=== PATIENT | male | born 1970 | race Caucasian/White ===

== ENCOUNTER → 2018-05-07 | Day surgery (SDC) | payer OTHER ==
[~2018-05-07] VITALS: Ht 175.3 cm; Wt 102.5 kg
[~2018-05-07] MED LIST: BUPIVAC MPF-EPI 0.5%-1:200000 30 ML VIAL. ONE; CALC625T PO; DEXAMETHASONE SOD PHOS 20 MG/5 ML VIAL. ONE; HYDROmorphone 2 MG/ML VIAL IV PRN; IV RINGERS,LACTATED 1000ML 1,000 ML IV ONE; IV RINGERS,LACTATED 1000ML 1,000 ML IV SCH; LIDOCAINE 1% PF 2 ML VIAL. ID PRN; MIDAZOLAM HCL/PF 2 MG/2 ML VIAL. ONE; MORPHINE SULFATE 2 MG/ML VIAL. IV PRN; ONDANSETRON PF 4 MG/2 ML VIAL. IV PRN; ONDANSETRON PF 4 MG/2 ML VIAL. ONE; PROCHLORPERAZINE 10 MG/2 ML VIAL. IV PRN; PROPOFOL 20 ML IV ONE; ePHEDrine PF IN SALINE 50 MG/5 ML DISP.SYRIN IV ONE; fentaNYL PF VIAL 100 MCG/2 ML VIAL IV PRN; fentaNYL PF VIAL 100 MCG/2 ML VIAL ONE
--- NOTE | 2018-05-07 08:03 | PDOC1 ---
History and Physical Date of Admission Date of Admission DATE: 05/07/18 TIME: 08:00 Identification/Chief Complaint Chief Complaint left inguinal hernia Source Source: Chart review, Patient History of Present Illness History of Present Illness Tom is a 47 yo male inmate with a year history of left inguinal fullness and pain brought for repair of his hernia Past Medical History Cardiovascular: No pertinent hx Pulmonary: No pertinent hx Renal/: No pertinent hx Past Surgical History Past Surgical History: Other (left hand) Social History Smoke: No ALCOHOL: none Drugs: None Current Medications Current Medications Current Medications Cefazolin Sodium/ Dextrose 50 ml @ 100 mls/hr 1X PREOP PRN IV PRIOR TO PROCEDURE; Start 05/07/18 at 06:00; Stop 05/07/18 at 18:00 Ringer's Solution 1,000 ml @ 75 mls/hr 1X ONCE IV Last administered on at 06:36; Start 05/07/18 at 06:45; Stop 05/07/18 at 20:04 Ondansetron HCl (Zofran) 4 mg PRN Q6HRS PRN IV NAUSEA/VOMITING; Start 05/07/18 at 06:45; Stop 05/08/18 at 06:44 Fentanyl Citrate (Fentanyl 2ml Vial) 25 mcg PRN Q5MIN PRN IV MILD PAIN; Start 05/07/18 at 06:45; Stop 05/08/18 at 06:44 Fentanyl Citrate (Fentanyl 2ml Vial) 50 mcg PRN Q5MIN PRN IV MODERATE TO SEVERE PAIN; Start 05/07/18 at 06:45; Stop 05/08/18 at 06:44 Morphine Sulfate (Morphine Sulfate) 1 mg PRN Q10MIN PRN IV SEVERE PAIN; Start 05/07/18 at 06:45; Stop 05/08/18 at 06:44 Ringer's Solution 1,000 ml @ 30 mls/hr Q24H IV ; Start 05/07/18 at 06:45; Stop 05/07/18 at 06:50; Status DC Lidocaine HCl (Xylocaine-Mpf 1% 2ml Vial) 2 ml 1X PRN PRN ID IV START; Start 05/07/18 at 06:45; Stop 05/08/18 at 06:44 Hydromorphone HCl (Dilaudid) 0.5 mg PRN Q10MIN PRN IV SEV PAIN, Second choice; Start 05/07/18 at 06:45; Stop 05/08/18 at 06:44 Prochlorperazine Edisylate (Compazine) 5 mg PACU PRN PRN IV NAUSEA, MRX1; Start 05/07/18 at 06:45; Stop 05/08/18 at 06:44 Bupivacaine HCl/ Epinephrine Bitart (Sensorcain-Mpf Epi 0.5%-1:[id number]) 30 ml STK -MED ONCE .ROUTE ; Start 05/07/18 at 06:45; Stop 05/07/18 at 06:46; Status DC Propofol 20 ml @ As Directed STK-MED ONCE IV ; Start 05/07/18 at 07:47; Stop at 07:48; Status DC Dexamethasone Sodium Phosphate (Decadron) 20 mg STK-MED ONCE .ROUTE ; Start 05/07/18 at 07:47; Stop 05/07/18 at 07:48; Status DC Ondansetron HCl (Zofran) 4 mg STK-MED ONCE .ROUTE ; Start 05/07/18 at 07:47; Stop 05/07/18 at 07:48; Status DC Midazolam HCl (Versed) 2 mg STK-MED ONCE .ROUTE ; Start 05/07/18 at 07:47; Stop 05/07/18 at 07:48; Status DC Fentanyl Citrate (Fentanyl 2ml Vial) 100 mcg STK-MED ONCE .ROUTE ; Start at 07:48; Stop 05/07/18 at 07:49; Status DC Active Scripts Active Reported Fibercon (Calcium Polycarbophil) 625 Mg Tablet 625 Mg PO HS PRN Allergies Allergies: Coded Allergies: No Known Drug Allergies (Unverified , 05/07/18) ROS Review of System negative with exception of present complaints Physical Exam General: Alert, Oriented X3, No acute distress HEENT: Atraumatic Lungs: Normal air movement Heart: RRR Abdomen: Soft Male Genitals Exam: other (left inguinal fullness extending into the left hemiscrotum) Skin: No rashes Vitals Vitals Vital Signs Date Time Temp Pulse Resp B/P (MAP) Pulse Ox O2 Delivery O2 Flow Rate FiO2 05/07/18 06:23 98.0 59 18 156/76 96 Room Air 98.0 VTE Prophylaxis Ordered VTE Prophylaxis Devices: Yes VTE Pharmacological Prophylaxi: No Assessment/Plan Assessment/Plan left inguinal hernia repair explained risks of bleeding, infection, recurrence, chronic pain he will proceed BELLE ISABEL MD May 07, 2018 08:03
--- NOTE | 2018-05-07 09:18 | PDOC ---
BRIEF OPERATIVE NOTE Date: May 07, 2018 Pre-Op Diagnosis left inguinal hernia Post-Op Diagnosis same, indirect Procedure Performed repair with mesh Surgeon Manolo Anesthesia Type: General Blood Loss 10cc IV Fluid 800cc Specimens Obtained none Findings indirect hernia sack containing omentum, adequate floor Complications none Operative Note Wk # [id number] BELLE ISABEL MD May 07, 2018 09:18
--- NOTE | 2018-05-07 09:19 | DISCH ---
DISCHARGE INSTRUCTIONS Condition on Discharge Condition on Discharge: Stable Activity After Discharge Activity Instructions for Disc: Activity as tolerated, Avoid exertion Lifting Instructions after Dis: No heavy lifting Diet after Discharge Diet after Discharge: Regular Wound Incision Care Wound/Incision Care: Ice to area for comfort Other wound/incision instructi: fernanda day Follow-Up Follow up with: 05/16 BELLE ISABEL MD May 07, 2018 09:19
[2018-05-07] MEDS: fentaNYL PF VIAL 100 MCG/2 ML VIAL IV PRN ×2 (09:22→09:30)
[2018-05-07 09:50] VITALS: BP 144/88
--- NOTE | 2018-05-07 09:50 | OP ---
DATE OF SURGERY: 05/07/2018 PREOPERATIVE DIAGNOSIS: Left inguinal hernia. POSTOPERATIVE DIAGNOSIS: Left inguinal hernia, indirect. PROCEDURE: Repair with mesh. SURGEON: Davion Isabel MD ANESTHESIA: General LMA. ESTIMATED BLOOD LOSS: 10 mL. IV FLUID: 800 mL. INDICATIONS: The patient is a 47-year-old male inmate with left inguinal fullness that extends down into his left hemiscrotum, he is brought for repair. OPERATIVE FINDINGS: Large left inguinal hernia containing omentum with an adequate inguinal floor. DESCRIPTION OF PROCEDURE: The patient was brought to the operating suite, given general LMA and the left groin was prepped and draped in usual sterile fashion. A 0.5% Marcaine with epinephrine was infiltrated in the skin and subcutaneous tissue along the incision line. Incision made and dissection carried down to the external oblique fascia. Bleeders were cauterized as identified. The fascia was opened in the direction of its fibers, extended through the external ring. Cord structures ____ the pubis. Maikel drain placed around them and dissection carried back to the internal ring where a large omentum containing hernia sac was identified, skeletonized and reduced. This was held in reduction with an extra large plug Phasix mesh, tacked with 2-0 PDS, taking care to avoid injury to adjacent vessels. A keyhole patch was then fashioned and placed over the floor of the canal, the slit closed with a single 2-0 PDS stitch. When hemostasis was present, the cord was returned to its normal anatomical position. External oblique fascia closed over it in a running fashion with 3-0 Vicryl. Subq approximated with 3-0 Vicryl. Skin closed with a subcuticular 4-0 Monocryl. Steri-Strips and sterile dressing applied. Prior to emergence from anesthesia, digital rectal exam failed to reveal evidence of prostatic enlargement or nodularity. The patient awakened from his anesthetic and taken to the recovery room in satisfactory condition. DAVION ISABEL MD DR: PANFILO/mingo JOB#: [id number] / [id number]
== END | disposition home or self-care (01) ==
LOC: SURG 05:53
PROVIDERS: ATTEND Surgery
DX: K40.90 Unilateral inguinal hernia, without obstruction or gangrene, not specified as recurrent (principal); N40.0 Benign prostatic hyperplasia without lower urinary tract symptoms; Z98.890 Other specified postprocedural states; Z79.899 Other long term (current) drug therapy
CPT/HCPCS: 49505; C1781; J0690; J1100; J2250; J2405; J2704; J3010; J3490; J7120